=== PATIENT | male | born 1955 | race Caucasian/White ===

== ENCOUNTER 2020-06-07 10:11 | Day surgery (SDC) | payer BC ==
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
[2020-05-29 17:03] LABS: BASOPHILS # (AUTO) 0.1 X10'3 (0-0.2); BASOPHILS % (AUTO) 1.1 % (0-1); EOSINOPHILS # (AUTO) 0.2 X10'3 (0-0.9); EOSINOPHILS % (AUTO) 3.5 % (0-6); LYMPHOCYTES # (AUTO) 1.4 X10'3 (1.1-4.8); MEAN CORPUSCULAR HEMOGLOBIN 32.5 PG (27.0-31.0); MEAN CORPUSCULAR HGB CONC 33.7 g/dL (33.0-36.5); MEAN CORPUSCULAR VOLUME 96.6 FL (78-98); MEAN PLATELET VOLUME 8.5 FL (7.4-10.4); MONOCYTES # (AUTO) 0.9 X10'3 (0-0.9); MONOCYTES % (AUTO) 14.4 % (2-12); NEUTROPHILS # (AUTO) 3.5 X10'3 (1.8-7.7); PRE OP HEMATOCRIT 44.6 % (42.0-52.0); PRE OP PLATELET COUNT 201 X10'3 (140-440); RED BLOOD COUNT 4.62 X10'6 (4.70-6.10); RED CELL DISTRIBUTION WIDTH 12.8 % (11.5-14.5)
[2020-05-29 17:12] LABS: PRE OP PROTIME 10.7 SECONDS (9.0-12.0)
[2020-05-29 17:21] LABS: ALBUMIN 4.2 G/DL (3.4-5.0); ALBUMIN/GLOBULIN RATIO 1.1 (1.1-1.5); ALKALINE PHOSPHATASE 97 IU/L (46-116); BLOOD UREA NITROGEN 17 MG/DL (7-18); CALCIUM 9.4 MG/DL (8.5-10.1); CHLORIDE 103 MMOL/L (99-107); CREATININE 0.85 MG/DL (0.60-1.10); PRE OP ALT 29 U/L (30-65); PRE OP ANION GAP 8 (8-16); PRE OP AST 32 U/L (10-37); PRE OP BILIRUB, TOTAL 0.8 MG/DL (0.0-1.0); PRE OP GLUCOSE 102 MG/DL (70-104); PRE OP POTASSIUM 4.8 MMOL/L (3.4-5.1); PRE OP SODIUM 141 MMOL/L (135-145); TOTAL CARBON DIOXIDE 30.4 MMOL/L (24-32); TOTAL PROTEIN 7.9 G/DL (6.4-8.2); eGFR > 90 ML/MIN
[2020-06-07] VITALS (18 sets, daily range): BP systolic 105–164; BP diastolic 57–105
[~2020-06-07] VITALS: Ht 182.9 cm; Wt 75.0 kg
[~2020-06-07 10:11] MED LIST: ASPI-612 PO; CELE-85 PO; HYDR12.55 PO; LEVO75TA PO; LIDOcaine 1% (10mg/ml) 2ml vial ONE; LIDOcaine 1%/PF 5ML 10 MG/ML VIAL ONE; LOSA50TA64 PO; MIDAZolam 5mg/5ml vial ONE; ROPIVAcaine 0.2% (10 MG/5 ML) BOLUS INJECTION ADDCANAL PRN; ROPIVAcaine 0.2%/PF PUMP/bolus 550 ML ADDCANAL SCH; ROPIVAcaine 0.5% (5mg/ml) 30ml vial ONE; ROPIVAcaine inj 200 MG, ketorolac trometh inj. 30 MG, epiNEPHrine inj 0.6 MG, morphine ... IU ONE; TRANEXAMIC ACID 1 GM IN NACL,ISO-OS 100 ML IV ONE; Thrombin (Bovine) 5,000 unit vial TP ONE; VANCOMYCIN 1,500MG inj. 1,500 MG in normal saline 500ml IV soln 300 ML IV ONE; calcium chloride 100 MG/1 ML inj IV ONE; ceFAZolin 1000mg inj ONE; ceFAZolin 2gm in dextrose, iso 50 ML IV ONE; diphenhydrAMINE 50 mg/ml inj ONE; famotidine 20mg tablet PO ONE; fentaNYL/PF 50MCG/1 ML 2ML syringe ONE; meperidine/PF 25mg/ml syringe IV PRN; midazolam 2 mg/2 ml injection ONE; morphine 2 MG/ML inj. syringe IV PRN; morphine 4 MG/ML inj SYRINge IV PRN; ondansetron/PF 4mg/2ml inj IV PRN; proCHLORperazine 10 MG/2 ml inj IV PRN; propofol inj 20 ML IV ONE; ringers solution, lacted 1,000 ML IV SCH; vancomycin 1,000mg inj ONE
[2020-06-07] MEDS ORDERED: acetaminophen 1,000mg/100ml IV 100 ML IV ONE (10:30)
[2020-06-07] MEDS ORDERED: diphenhydrAMINE 25mg capsule PO PRN ×2 (10:30)
[2020-06-07] MEDS ORDERED: HYDROmorphone 1 mg/ml syringe IV PRN (10:30)
[2020-06-07] MEDS ORDERED: oxyCODONE IR 5mg (immed. release) tablet PO PRN ×2 (10:30)
[2020-06-07] MEDS ORDERED: ondansetron/PF 4mg/2ml inj IV PRN (10:30)
[2020-06-07] MEDS ORDERED: HYDROmorphone inj. 0.5 MG/0.5 ML DISP.SYRIN IV PRN (10:30)
[2020-06-07] MEDS ORDERED: bisacodyl 10mg suppository rectal RC PRN (10:30)
[2020-06-07] MEDS ORDERED: magnesium hydroxide 30ml (MOM) UD suspension PO PRN (10:30)
[2020-06-07] MEDS ORDERED: acetaminophen 325mg tablet PO PRN (10:30)
--- NOTE | 2020-06-07 10:35 | NUR ---
Received from OR via BED , accompanied by Anesthesiologist DR CASTANO and report given by Anesthesiolgist. PATIENT WAKING UP, DENIES PAIN, V/S WNL, NEUROVASCULAR CHECKS INTACT, 18G PIV LUE , RAHEL DRESSING TO RIGHT KNEE CDI W/ COLD POWDER PACK AND ON QUE PUMP AT 4ML/HR , SENSATION T-11.
--- NOTE | 2020-06-07 10:52 | NUR ---
received report from girish noriega
--- NOTE | 2020-06-07 11:45 | NUR ---
PATIENT A&OX4, DENIES PAIN, V/S WNL, NEUROVASCULAR CHECKS INTACT, 20G PIV LUE , RAHEL DRESSING TO RIGHT KNEE CDI W/ COLD POWDER PACK AND ON QUE PUMP AT 4ML/HR , SENSATION T-11. PATIENT TAKEN TO 4015B WITH ALL BELONGINGS AND HOOKED UP TO MONITORS IN ROOM AND REPORT GIVEN TO MANAGER WELLNESS WHO HAS TAKEN OVER PATIENT CARE.
[2020-06-07] MEDS: gabapentin 300mg capsule PO SCH ×2 (13:19→20:29)
[2020-06-07] MEDS: potassium cl 20mEq in 1/2 NS 1,000 ML IV SCH ×2 (13:26→20:31)
[2020-06-07] MEDS ORDERED: tranexamic acid inj. 750 MG in normal saline 100ml IV soln 100 ML IV ONE (13:30)
[2020-06-07] MEDS: acetaminophen 325mg tablet PO SCH ×2 (14:23→20:30)
--- NOTE | 2020-06-07 14:33 | NUR ---
gave report to girish bob
--- NOTE | 2020-06-07 14:44 | NUR ---
Patient in room [facility]TH[facility] 4015. I have received report from Katya and had the opportunity to ask questions and assume patient care.
--- NOTE | 2020-06-07 18:00 | NUR ---
RECEIVED REPORT FROM JACKSON JIMENEZ AND ASSUMED PATIENT CARE
--- NOTE | 2020-06-07 18:24 | NUR ---
Problems reprioritized. Patient report given, questions answered & plan of care reviewed with Terra.
[2020-06-07] MEDS ORDERED: sennosides 8.6mg tablet PO SCH (21:00)
[2020-06-08 02:00] VITALS: BP_SYST 117; BP_SYST 164; BP_DIAS 50; BP_DIAS 91
[2020-06-08] MEDS: acetaminophen 325mg tablet PO SCH ×3 (02:00→12:58)
[2020-06-08] MEDS: potassium cl 20mEq in 1/2 NS 1,000 ML IV SCH ×2 (02:30→10:30)
[2020-06-08 06:00] VITALS: BP 164/96
--- NOTE | 2020-06-08 06:32 | NUR ---
Patient in room [facility]TH[facility] 4015. I have received report from Terra JIMENEZ and had the opportunity to ask questions and assume patient care.
[2020-06-08] MEDS ORDERED: ASPI-1 PO (06:54)
[2020-06-08] MEDS: gabapentin 300mg capsule PO SCH ×2 (07:41→12:55)
[2020-06-08] MEDS ORDERED: levoTHYROXINE 75mcg tablet PO SCH (08:00)
[2020-06-08] MEDS ORDERED: HYDROchlorothiazide 12.5mg capsule PO SCH (08:00)
[2020-06-08] MEDS ORDERED: aspirin 81mg tab.chew PO SCH (08:00)
[2020-06-08] MEDS ORDERED: celeCOXIB 100mg capsule PO SCH ×2 (08:00→20:00)
[2020-06-08] MEDS ORDERED: losartan 50mg tablet PO SCH (08:00)
[2020-06-08 08:23] LABS: BASOPHILS # (AUTO) 0.1 X10'3 (0-0.2); BASOPHILS % (AUTO) 0.7 % (0-1); EOSINOPHILS # (AUTO) 0.2 X10'3 (0-0.9); EOSINOPHILS % (AUTO) 2.2 % (0-6); HEMOGLOBIN 13.4 g/dl (14.0-17.9); LYMPHOCYTES % (AUTO) 11.1 % (21-51); MEAN CORPUSCULAR HEMOGLOBIN 32.4 PG (27.0-31.0); MEAN CORPUSCULAR HGB CONC 33.6 g/dL (33.0-36.5); MEAN CORPUSCULAR VOLUME 96.5 FL (78-98); MEAN PLATELET VOLUME 9.3 FL (7.4-10.4); MONOCYTES % (AUTO) 10.7 % (2-12); NEUTROPHILS # (AUTO) 6.7 X10'3 (1.8-7.7); NEUTROPHILS % (AUTO) 75.3 % (42-75); PLATELET COUNT 175 X10'3 (140-440); RED BLOOD COUNT 4.14 X10'6 (4.70-6.10); RED CELL DISTRIBUTION WIDTH 12.7 % (11.5-14.5); WHITE BLOOD COUNT 8.9 X10'3 (4.5-11.0)
[2020-06-08] MEDS ORDERED: aspirin 325mg tablet PO SCH (08:30)
[2020-06-08 08:49] LABS: ANION GAP 5 (8-16); CHLORIDE 107 MMOL/L (99-107); POTASSIUM 4.4 MMOL/L (3.5-5.1); SODIUM 141 MMOL/L (135-145)
[2020-06-08 10:00] VITALS: BP 125/76
[2020-06-08] MEDS ORDERED: WALKERFR (12:36)
--- NOTE | 2020-06-08 15:08 | NUR ---
Joint replacement consult: Pt seen by ANJEL for written/verbal high protein eds w/ RD contact information provided. Pt declines additional proteins/ONS at this time. To f/u 06/12 for initial assessment. Addendum: 06/08/20 at [address] Amended: Links added.
--- NOTE | 2020-06-08 16:20 | NUR ---
Patient stable for discharge home today. All discharge instructions given to patient and questions answered. IV removed with canula intact.
[2020-06-09] MEDS ORDERED: acetaminophen 325mg tablet PO PRN (10:30)
== END 2020-06-08 15:53 | disposition home or self-care (01) ==
LOC: SSTAY O 10:11 → PAS IN 10:29 → UNDOADMIN 10:29 → PAS IN 11:50 → ORTHO 4S 11:50 → SSTAY O 06-08 15:53
PROVIDERS: ATTEND Orthopaedic Surgery
DX: M17.11 Unilateral primary osteoarthritis, right knee (principal); I10 Essential (primary) hypertension; E03.9 Hypothyroidism, unspecified; G89.18 Other acute postprocedural pain; Z79.82 Long term (current) use of aspirin; Z20.828 Contact with and (suspected) exposure to other viral communicable diseases; Z79.01 Long term (current) use of anticoagulants; Z79.899 Other long term (current) drug therapy; Z98.890 Other specified postprocedural states
CPT/HCPCS: 27446; 36415; 64448; 76937; 80051; 80053; 82948; 84443; 85025; 85610; 85730; 87081; 87635; 97110; 97116; 97161; 97530; C1713; C1776; J0131; J0690; J1200; J2001; J2250; J2704; J2795; J3010; J3370; J7040; J7050; A4215; A4618; A7000; G0378; J3480; J7120